=== PATIENT | female | born 1985 | race African-American/Black ===

== ENCOUNTER 2017-09-21 18:25 | Emergency (ER) | payer SELFPAY ==
[~2017-09-21] VITALS: Ht 175.3 cm; Wt 63.5 kg
[2017-09-21 18:28] VITALS: BP 141/89; PULSE 97; RESP 18; TEMP 98.5; O2SAT 100
--- NOTE | 2017-09-21 19:04 | PD ---
HPI Chief Complaint: Chest Pain Time Seen by Provider: 19:04 Travel History International Travel<30 days: No Contact w/Intl Traveler<30days: No Traveled to known affect area: No History of Present Illness HPI 32-year-old female came to the emergency room with history of chest tightness, shortness of breath on and off for past 3 days. Patient says the chest tightness of the chest pressure is constant but the shortness of breath comes and goes. Yesterday she was cleaning her house and went up the stairs when she got really short of breath. Patient is from [place] and was driving back home when the pressure got worse and she decided to come to the emergency room. Patient says in May 2017 she had had a sudden onset of palpitations while she was in [facility] and was taken to the emergency room there. She is not sure the tests that were done but she was given a pill to take and was eventually discharged home. Patient is not a smoker. She is not on any control pills. The pressure/tightness is all throughout her chest and no radiation. She has been getting bilateral shoulder pain and bilateral upper extremity tingling. No aggravating or relieving factors identified. She is otherwise a healthy person. Patient has been taking Savanna aspirin over-the- counter for this problem. [facility] Past Medical History Narrative Medical List of her past medical, surgical, social and family history is reviewed from the nursing note. ?: Not Social History Tobacco Use: No Allergies-Medications (Allergen,Severity, Reaction): Coded Allergies: No Known Allergies (Unverified , 09/21/17) Comments No known drug allergies Reported Meds & Prescriptions Reported Meds & Active Scripts Active No Active Prescriptions or Reported Medications Narrative Medication List of her home medications reviewed from the nursing note. Review of Systems Except as stated in HPI: all other systems reviewed are Neg Cardiovascular: Positive: Chest Pain or Discomfort Respiratory: Positive: Shortness of Breath Physical Exam Narrative GENERAL: Awake, alert, anxious, no obvious distress SKIN: Focused skin assessment warm/dry. HEAD: Atraumatic. Normocephalic. EYES: Pupils equal and round. No scleral icterus. No injection or drainage. ENT: No nasal bleeding or discharge. Mucous membranes pink and moist. NECK: Trachea midline. No JVD. CARDIOVASCULAR: Regular rate and rhythm. No murmur appreciated. RESPIRATORY: No accessory muscle use. Clear to auscultation. Breath sounds equal bilaterally. GASTROINTESTINAL: Abdomen soft, non-tender, nondistended. Hepatic and splenic margins not palpable. MUSCULOSKELETAL: No obvious deformities. No clubbing. No cyanosis. No edema. NEUROLOGICAL: Awake and alert. No obvious cranial nerve deficits. Motor grossly within normal limits. Normal speech. PSYCHIATRIC: Appropriate mood and affect; insight and judgment normal. Data Data Last Documented VS Orders Orders Electrocardiogram (09/21/17 19:) Basic Metabolic Panel (Bmp) (09/21/17 19:) Complete Blood Count With Diff (09/21/17:) D-Dimer (09/21/17:) Magnesium (Mg) (09/21/17:) Prothrombin Time / Inr (Pt) (09/21/17:) Troponin I (09/21/17:) Ecg Monitoring (09/21/17:) Bilateral Bp Monitoring (09/21/17:) Iv Access Insert/Monitor (09/21/17:) Oximetry (09/21/17:) Oxygen Administration (09/21/17:) Sodium Chloride 0.9% Flush (Ns Flush) (09/21/17 19:15) Chest, Pa & Lat (09/21/17 19:13) Ed Discharge Order (09/21/17 20:42) Labs Laboratory Tests Test 09/21/17 19:35 White Blood Count 4.7 TH/MM3 Red Blood Count 4.77 MIL/MM3 Hemoglobin 14.0 GM/DL Hematocrit 42.0 % Mean Corpuscular Volume 88.1 FL Mean Corpuscular Hemoglobin 29.5 PG Mean Corpuscular Hemoglobin Concent 33.4 % Red Cell Distribution Width 13.2 % Platelet Count 205 TH/MM3 Mean Platelet Volume 9.0 FL Neutrophils (%) (Auto) 56.3 % Lymphocytes (%) (Auto) 28.2 % Monocytes (%) (Auto) 12.7 % Eosinophils (%) (Auto) 1.9 % Basophils (%) (Auto) 0.9 % Neutrophils # (Auto) 2.7 TH/MM3 Lymphocytes # (Auto) 1.3 TH/MM3 Monocytes # (Auto) 0.6 TH/MM3 Eosinophils # (Auto) 0.1 TH/MM3 Basophils # (Auto) 0.0 TH/MM3 CBC Comment DIFF FINAL Differential Comment Prothrombin Time 11.4 SEC Prothromb Time International Ratio 1.1 RATIO D-Dimer Quantitative (PE/DVT) 0.19 MG/L FEU Blood Urea Nitrogen 5 MG/DL Creatinine 0.76 MG/DL Random Glucose 76 MG/DL Calcium Level 8.7 MG/DL Magnesium Level 2.1 MG/DL Sodium Level 141 MEQ/L Potassium Level 4.0 MEQ/L Chloride Level 104 MEQ/L Carbon Dioxide Level 29.2 MEQ/L Anion Gap 8 MEQ/L Estimat Glomerular Filtration Rate 107 ML/MIN Troponin I LESS THAN 0.02 NG/ML MDM Medical Decision Making Medical Screen Exam Complete: Yes Emergency Medical Condition: Yes Medical Record Reviewed: Yes Interpretation(s) Twelve-lead EKG was reviewed by me. Normal sinus rhythm, normal axis, nonspecific ST-T wave changes. Heart rate of 71 bpm. Differential Diagnosis ACS, non-STEMI, atypical chest pain, PE Narrative Course 8:39 PM blood test results of back and troponin and d-dimer are within normal limits. Chest x-rays negative. Given patient's age and no risk factors uncomfortable with these results and comfortable to discharge her home. Procedures EKG Prior to Arrival: No Diagnosis Primary Impression: Atypical chest pain Referrals: Primary Care Physician 2 days Additional Instructions: Follow-up with your primary care when he go back home next couple days. Return to the emergency room if the condition worsens or any other new concerns. Med/Other Pt SpecificInfo: No Change to Meds Scripts No Active Prescriptions or Reported Meds Disposition: 01 DISCHARGE HOME Condition: Stable Kelly Holguin MD Sep 21, 2017 19:04
[2017-09-21] MEDS ORDERED: SODIUM CHLORIDE 0.9% FLUSH 10 ML FLUSH IVF PRN (19:15)
--- NOTE | 2017-09-21 19:35 | RADRPT ---
EXAM DATE/TIME: 09/21/2017 19:22 [facility] COMPARISON: No previous studies available for comparison. INDICATIONS : Chest pain MEDICAL HISTORY : None. SURGICAL HISTORY : None. ENCOUNTER: Initial ACUITY: 3 days PAIN SCORE: 0/10 LOCATION: chest FINDINGS: PA and lateral views of the chest demonstrate the lungs to be symmetrically aerated without evidence of mass, infiltrate or effusion. The cardiomediastinal contours are unremarkable. Osseous structure s are intact. CONCLUSION: No acute disease. Noah Westfall MD on September 21, 2017 at 19:29 Board Certified Radiologist. This report was verified electronically.
[2017-09-21 19:58] VITALS: O2SAT 99
[2017-09-21 19:59] VITALS: BP 131/82; PULSE 70; RESP 14; O2SAT 100
[2017-09-21 20:09] LABS: AUTOMATED NEUTROPHIL # 2.7 TH/MM3 (1.8-7.7); BASOPHIL % 0.9 % (0.0-2.0); EOSINOPHIL # 0.1 TH/MM3 (0-0.4); EOSINOPHIL % 1.9 % (0.0-4.0); LYMPH % 28.2 % (9.0-44.0); LYMPHOCYTE # 1.3 TH/MM3 (1.0-4.8); MEAN CELL VOLUME 88.1 FL (80.0-100.0); MEAN CORPUSCULAR HEMOGLOBIN 29.5 PG (27.0-34.0); MEAN CORPUSCULAR HGB CONC 33.4 % (32.0-36.0); MONO % 12.7 % (0.0-8.0); MONOCYTE # 0.6 TH/MM3 (0-0.9); NEUT % 56.3 % (16.0-70.0); PLATELET COUNT 205 TH/MM3 (150-450); RED BLOOD COUNT 4.77 MIL/MM3 (4.00-5.30); RED CELL DISTRIBUTION WIDTH 13.2 % (11.6-17.2); WHITE BLOOD COUNT 4.7 TH/MM3 (4.0-11.0)
[2017-09-21 20:22] LABS: INTERNATIONAL NORMALIZED RATIO 1.1 RATIO; PROTHROMBIN TIME - PATIENT 11.4 SEC (9.8-11.6)
[2017-09-21 20:23] LABS: BICARBONATE 29.2 MEQ/L (21.0-32.0); BLOOD UREA NITROGEN 5 MG/DL (7-18); CALCIUM 8.7 MG/DL (8.5-10.1); CHLORIDE 104 MEQ/L (98-107); CREATININE 0.76 MG/DL (0.50-1.00); GLOMERULAR FILTRATION RATE 107 ML/MIN (>89); GLUCOSE,RANDOM 76 MG/DL (74-106); MAGNESIUM 2.1 MG/DL (1.5-2.5); SODIUM (NA) 141 MEQ/L (136-145)
[2017-09-21 20:25] LABS: D-DIMER 0.19 MG/L FEU (0.00-0.50)
[2017-09-21 20:26] LABS: TROPONIN I LESS THAN 0.02 NG/ML (0.02-0.05)
[2017-09-21 20:37] VITALS: BP 121/80; PULSE 78; RESP 14; O2SAT 100
--- NOTE | 2017-09-22 11:29 | EKG ---
Date Performed: 09/21/2017 Time Performed: 19:30:25 PTAGE: 32 years EKG: Sinus rhythm NORMAL ECG NO PREVIOUS TRACING DOCTOR: Darlene Decker Interpretating Date/Time 09/22/2017 11:25:42
== END 2017-09-21 20:54 | disposition home or self-care (01) ==
LOC: NEPC 18:25
DX: R07.89 Other chest pain (principal)
CPT/HCPCS: 71046; 80048; 83735; 84484; 85025; 85379; 85610; 93005; 99285